=== PATIENT | male | born 1970 | race Two or more races ===

== ENCOUNTER 2023-04-08 16:34 | Emergency (ER) | payer MEDICAID ==
[~2023-04-08] VITALS: Ht 172.7 cm; Wt 89.4 kg
[2023-04-08 17:23] LABS: Urine Bacteria FEW /hpf (None Seen); Urine Blood Negative /uL (Negative); Urine Clarity Clear (Clear); Urine Color Yellow (Yellow); Urine Mucus FEW (None Seen); Urine Protein, UAD Negative (Negative); Urine WBC 1 /hpf (0 - 3)
[2023-04-08 17:27] LABS: Amphetamine Screen, Urine Neg (NEGATIVE); Barbiturate Scree,Urine Neg (NEGATIVE); Benzodiazephine Screen, Urine Neg (NEGATIVE); Cannabinoid Screen, Urine Neg (NEGATIVE); Cocaine Screen, Urine Neg (NEGATIVE); Opiate Scree,Urine Neg (NEGATIVE); Phencyclidine Screen, Urine Neg (NEGATIVE)
[2023-04-08 17:30] LABS: Alanine Aminotransferase 31 U/L (7-40); Albumin 4.2 g/dL (3.2-4.8); Alkaline Phosphatase 80 U/L (46-116); Anion Gap 9 (5-15); Aspartate Aminotransferase 30 U/L (13-40); BUN/Creatinine Ratio 9.3 (10.0-20.0); Blood Urea Nitrogen 8 mg/dL (9-23); Calcium 8.8 mg/dL (8.7-10.4); Carbon Dioxide 23 mmol/L (20-30); Chloride 108 mmol/L (98-107); Glucose 122 mg/dL (74-106); Hematocrit 45.1 % (41.0-53.0); Hemoglobin 15.5 g/dL (13.5-17.5); Magnesium 1.9 mg/dL (1.6-2.6); Mean Corpuscular Hemoglobin 29.7 pg (28.0-32.0); Mean Corpuscular Hgb Conc. 34.4 g/dL (32.0-36.0); Mean Corpuscular Volume 86.3 fL (80.0-100.0); Potassium 3.6 mmol/L (3.5-5.1); Red Blood Cells 5.22 10^6/uL (4.5-5.90); Red Cell Distribution Width 14.7 % (11.8-14.3); Sodium 140 mmol/L (136-145); White Blood Cell 7.4 10^3/uL (4.4-10.8)
[2023-04-08 17:31] LABS: Acetaminophen < 2.0 UG/ML (10.0-20.0); Bilirubin, Total 0.4 mg/dL (0.2-1.0); Salicylate < 3.0 mg/dL (2.8-20.0); Total Protein 6.5 g/dL (5.7-8.2)
[2023-04-08 17:42] LABS: Blood Alcohol 135.3 mg/dL (<10)
[2023-04-08 17:49] LABS: Band Neutrophils % (manual) 0; Basophils % (manual) 0 (0.0-2.0); Blast Cells 0; Eosinophils % (manual) 0 (0-7); Metamyelocytes % 0; Myelocytes % 0; Promyelocytes % 0; Reactive Lymphocytes 0
[2023-04-08] MEDS: LORazepam 0.5 MG TAB PO ONE (18:36)
[2023-04-08 19:06] LABS: Lymphocytes % (manual) 30 (10.0-50.0)
[2023-04-08 19:07] LABS: Monocytes % (manual) 16 (0-12); Platelet Estimate Adequate
[2023-04-09] MEDS: LORazepam 0.5 MG TAB PO ONE (06:53)
[2023-04-09] MEDS: ACETAMINOPHEN 325 MG TAB PO ONE (06:53)
[2023-04-09 20:00] VITALS: RESP 24; O2SAT 97
[2023-04-10] MEDS: MAALOX PLUS or MAALOX 30 ML PO ONE (01:39)
[2023-04-10 07:42] VITALS: BP 114/71; PULSE 88; RESP 18; TEMP 97.6; O2SAT 94
[2023-04-10 09:45] VITALS: PULSE 94
== END 2023-04-10 16:00 | disposition left against medical advice (07) ==
LOC: ER 16:34
DX: F10.129 Alcohol abuse with intoxication, unspecified (principal); F17.210 Nicotine dependence, cigarettes, uncomplicated; R06.02 Shortness of breath; R07.89 Other chest pain; Y90.6 Blood alcohol level of 120-199 mg/100 ml
CPT/HCPCS: 36415; 71045; 80053; 80307; 80320; 80329; 81001; 82140; 83690; 83735; 85007; 85027; 93005; 94640

== ENCOUNTER 2025-01-19 16:14 | Emergency (ER) | payer MEDICAID ==
[~2025-01-19] VITALS: Ht 170.2 cm; Wt 75.2 kg
[2025-01-19 16:19] VITALS: BP 130/72; PULSE 112; RESP 18; TEMP 97.7; O2SAT 97
[2025-01-19] MEDS ORDERED: SODIUM CHLORIDE 0.9% 1,000 ML IV ONE (20:00)
--- NOTE | 2025-01-19 20:22 | ED.PDOC ---
Psychiatric HPI Comments 54-year-old male who came to ER for detox. Patient has a history of alcohol and methamphetamine abuse. Last drank alcohol this morning, and last used methamphetamines 2 days ago. Patient currently experiencing tremors. Patient coming in for detox Chief Complaint: Detox Clearance Time Seen by MD: 20:22 Primary Care Provider: UNKNOWN Reviewed Notes: Nurses Notes Information Source: Patient Mode of Arrival: Ambulatory Severity: Unable to Care for Self Past Medical History PAST MEDICAL HISTORY: Anxiety, Depression, Schizophrenia Surgical History: Denies all surgeries Family History Family History: Reviewed,noncontributory to illness Social History Smoker: Cigarettes Alcohol: Heavy Drugs: Methamphetamine Lives In: Home Constitutional: denies: chills, diaphoresis, fatigue, fever, malaise, sweats, weakness, others EENTM: denies: blurred vision, double vision, ear bleeding, ear discharge, ear drainage, ear pain, ear ringing, eye pain, eye redness, hearing loss, mouth pain, mouth swelling, nasal discharge, nose bleeding, nose congestion, nose pain, photophobia, tearing, throat pain, throat swelling, voice changes, others Respiratory: denies: cough, hemoptysis, orthopnea, SOB at rest, shortness of breath, SOB with excertion, stridor, wheezing, others Cardiovascular: denies: chest pain, dizzy spells, diaphoresis, Dyspnea on exertion, edema, irregular heart beat, left arm pain, lightheadedness, palpitations, PND, syncope, others Gastrointestinal: denies: abdomen distended, abdominal pain, blood streaked bowels, constipated, diarrhea, dysphagia, difficulty swallowing, hematemesis, melena, nausea, poor appetite, poor fluid intake, rectal bleeding, rectal pain, vomiting, others Genitourinary: denies: burning, dysuria, flank pain, frequency, hematuria, incontinence, penile discharge, penile sore, pain, testicle pain, testicle swelling, urgency, others Neurological: reports: tremors; denies: dizziness, fainting, headache, left sided numbness, left sided weakness, numbness, paresthesia, pre-existing deficit, right sided numbness, right sided weakness, seizure, speech problems, tingling, weakness, others Musculoskeletal: denies: back pain, gout, joint pain, joint swelling, muscle pain, muscle stiffness, neck pain, others Integumetry: denies: bruises, change in color, change in hair/nails, dryness, laceration, lesions, lumps, rash, wounds, others Allergic/Immunocompromised: denies: Difficulty Healing, Frequent Infections, Hives, Itching, others Hematologic/Lymphatic: denies: anemia, blood clots, easy bleeding, easy bruising, swollen glands, others Endocrine: denies: excessive hunger, excessive sweating, excessive thirst, excessive urination, flushing, intolerance to cold, intolerance to heat, unexplained weight gain, unexplained weight loss, others Psychiatric: denies: anxiety, bipolar disorder, depression, hopeless, panic disorder, schizophrenia, sleepless, suicidal, others Physical Exam General Appearance: No Apparent Distress, Normal HEENT: Normal ENT Inspection, Pharynx Normal, TMs Normal Neck: Full Range of Motion, Non-Tender, Normal, Normal Inspection Respiratory: Chest Non-Tender, Lungs Clear, No Accessory Muscle Use, No Respiratory Distress, Normal Breath Sounds Cardiovascular: No Edema, No JVD, No Murmur, No Gallop, Normal Peripheral Pulses, Regular Rate/Rhythm Breast Exam: Deferred Gastrointestinal: No Organomegaly, Non Tender, No Pulsatile Mass, Normal Bowel Sounds, Soft Genitalia: Deferred Pelvic: Deferred Rectal: Deferred Extremities: No calf tenderness, Normal capillary refill, Normal inspection, Normal range of motion, Non-tender, No pedal edema Musculoskeletal : Apperance: Normal Neurologic: Alert, magazine designer II-XII nml as Tested, No Motor Deficits, Normal Affect, Normal Mood, No Sensory Deficits Cerebellar Function: Normal Reflexes: Normal Skin: Dry, Normal Color, Warm Lymphatic: No Adenopathy Was a procedure done? Was a procedure done?: No Psych Differential Dx Psych. Differential Dx: Anxiety, Depression, Panic Disorder OD Differential Dx: Substance Abuse Intoxication Differential Dx: Alcohol Withdraw Syndrome, Intoxication, Substance Abuse Disorder X-Ray, Labs, Meds, VS Vital Signs Date Time Temp Pulse Resp B/P (MAP) Pulse Ox O2 Delivery O2 Flow Rate FiO2 01/19/25 16:19 97.7 112 18 130/72 97 97.7 Time of 1ST Reevaluation: 20:20 Reevaluation 1ST: Unchanged Reevaluation 2ND: eloped Patient Education/Counseling: Diagnosis, Treatment Family Education/Counseling: No Family Present Comments Patient checked in the 1st time with the minutes I went to look for him but he had eloped. Patient then came back to the ER and checked back in. He was seen this time and explained to him the plan of care. Patient agreed. However, patient eloped again he for any tests can be done or treatments can be rendered Departure 1 Departure Time of Disposition: 21:32 Impression: Primary Impression: Substance abuse Disposition: 07 LEFT AWOL/ELOPED Condition: Other (unknown) Critical Care Note Critical Care Time?: No Stability Stability form required: No Heart Score Heart Score: Heart Score Response (Comments) Value History N/A 0 EKG N/A 0 Age N/A 0 Risk Factors N/A 0 Troponin N/A 0 Total 0 I personally scribed for JUSTIN BRANNON MD ([email or web address]) on 01/19/25 at 20:22. Electronically submitted by Mega Saenz ([email or web address]). JUSTIN BRANNON MD Jan 19, 2025 20:22
== END 2025-01-19 21:34 | disposition left against medical advice (07) ==
LOC: ER 16:14
DX: F19.10 Other psychoactive substance abuse, uncomplicated (principal); F10.90 Alcohol use, unspecified, uncomplicated; F17.210 Nicotine dependence, cigarettes, uncomplicated; F41.9 Anxiety disorder, unspecified; F32.A Depression, unspecified; F20.9 Schizophrenia, unspecified